=== PATIENT | female | born 1945 | race Caucasian/White ===

== ENCOUNTER → 2018-09-11 | Outpatient (CLI) | payer MEDICARE, BC | LOC: MC.RAD 08-07 09:40 | DX: Z00.00 Encounter for general adult medical examination without abnormal findings (principal); Z12.31 Encounter for screening mammogram for malignant neoplasm of breast ==

== ENCOUNTER → 2019-10-08 | Outpatient (CLI) | payer MEDICARE, BC | LOC: MC.RAD 11:45 | DX: Z12.31 Encounter for screening mammogram for malignant neoplasm of breast (principal) ==

== ENCOUNTER 2020-09-24 08:00 | Day surgery (SDC) | payer MEDICARE, BC ==
[~2020-09-24] VITALS: Ht 167.6 cm; Wt 69.4 kg
[2020-09-24] MEDS ORDERED: LOPRESSOR 225 MG/TAB PO (08:25)
[2020-09-24] MEDS ORDERED: CENTRUM1 TA1 (08:43)
[2020-09-24] MEDS ORDERED: THE MEDICINE S200 M2 PO (08:45)
[2020-09-24] MEDS ORDERED: NATURAL E400 IU PO (08:47)
[2020-09-24] MEDS ORDERED: PEPCID 20MG TAB20 MG PO (08:47)
[2020-09-24] MEDS ORDERED: CALCIUM 600 PLU1 TAB PO (08:48)
[2020-09-24 08:49] VITALS: BP 144/68; PULSE 82; TEMP 98.3
[2020-09-24 09:40] VITALS: BP 128/66; PULSE 68
--- NOTE | 2020-09-24 09:40 | NUR ---
Pt returns from endo procedure via cart. Pt ambulates from cart to recliner with RN assist. Monitors on and alarms set. Call light within reach. Report received from MAHAMED Aguilar. Pt alert and responding appropriately. Pt's in room. Pt requests coffee only. No complaints of pain or nausea.
[2020-09-24 09:54] VITALS: BP 140/77; PULSE 67
[2020-09-24 10:00] VITALS: BP 136/91; PULSE 67
--- NOTE | 2020-09-24 10:00 | NUR ---
Pt taking food and drink well. No complaints of pain or nausea.
[2020-09-24 10:15] VITALS: BP 142/77; PULSE 64
--- NOTE | 2020-09-24 10:30 | NUR ---
Discharge instructions given to pt and . All questions answered to their satisfaction. Handed to them are a thank you card, discharge instructions, diagnosis information, and a procedural photo sheet.
--- NOTE | 2020-09-24 10:35 | NUR ---
Pt transferred out of hospital via wheelchair and this RN to private vehicle driven by .
== END 2020-09-24 10:35 | disposition home or self-care (01) ==
LOC: SDCO 08:00 → EDSTATUS 09:45 → SDCO 09:45
DX: Z12.11 Encounter for screening for malignant neoplasm of colon (principal); D12.3 Benign neoplasm of transverse colon; D12.5 Benign neoplasm of sigmoid colon; Z86.010 Personal history of colon polyps; K57.30 Diverticulosis of large intestine without perforation or abscess without bleeding; Z88.5 Allergy status to narcotic agent; E11.9 Type 2 diabetes mellitus without complications
CPT/HCPCS: J2704; J7030

== ENCOUNTER → 2020-10-13 | Outpatient (CLI) | payer MEDICARE, BC ==
[~2020-10-13] MED LIST: CALCIUM 600 PLU1 TAB PO; CENTRUM1 TA1; LOPRESSOR 225 MG/TAB PO; NATURAL E400 IU PO; PEPCID 20MG TAB20 MG PO; THE MEDICINE S200 M2 PO
== END ==
LOC: MC.RAD 11:15
DX: Z12.31 Encounter for screening mammogram for malignant neoplasm of breast (principal)

== ENCOUNTER 2021-06-11 02:25 | Emergency (ER) | payer MEDICARE, BC ==
[~2021-06-11] VITALS: Ht 167.6 cm; Wt 70.5 kg
[2021-06-11 02:35] VITALS: TEMP 98.3
[2021-06-11 03:10] LABS: BASO # 0.1 (0.0-0.2); BASO % 0.7 % (0.0-2.0); EOS # 0.3 (0.0-0.7); EOS % 4.1 % (0-4.0); GRAN % 58.7 % (42.2-75.2); HEMATOCRIT 43.8 % (37.0-47.0); HEMOGLOBIN 14.4 g/dl (12.5-16.0); LYMPH # 1.8 (1.2-3.4); LYMPH % 26.4 % (20.0-51.0); MEAN CELL VOLUME 91 fl (80.0-100.0); MEAN CORPUSCULAR HEMOGLOBIN 30 pg (27.0-31.0); MEAN CORPUSCULAR HGB CONC 33 g/dl (33.0-37.0); MEAN PLATELET VOLUME 11.5 fl (7.4-10.4); MONO # 0.7 (0.1-0.6); MONO % 9.7 % (1.7-9.3); PLATELET COUNT 174 K/mm3 (130-400); RED BLOOD COUNT 4.83 M/mm3 (4.10-5.30); REDCELL DISTRIBUTION WIDTH-CV 12.2 % (11.5-14.5)
[2021-06-11 03:16] LABS: ALANINE AMINOTRANSFERASE 32 U/L (4-34); ALBUMIN 4.2 gm/dL (3.5-5.0); ALKALINE PHOSPHATASE 71 U/L (50-136); ANION GAP 10 mmol/L (7-16); AST,SGOT 30 U/L (15-37); BILIRUBIN,TOTAL 0.5 mg/dL (0.0-1.0); BLOOD UREA NITROGEN 17 mg/dL (7-17); CALCIUM 9.6 mg/dL (8.4-10.2); CARBON DIOXIDE 26 mmol/L (22-30); CHLORIDE 105 mmol/L (98-107); CREATININE, serum 0.67 (0.52-1.25); GLUCOSE 207 mg/dL (74-106); POTASSIUM 3.8 mmol/L (3.4-5.0); SODIUM 141 mmol/L (137-145); TOTAL PROTEIN 7.4 gm/dL (6.4-8.2)
[2021-06-11 03:32] LABS: TROPONIN-I < 0.012 ng/mL (0.000-0.035)
[2021-06-11 05:14] LABS: PROTHROMBIN TIME 10.6 SECONDS (9.7-12.8)
[2021-06-11 05:17] LABS: PARTIAL THROMBOPLASTIN TIME 28.2 SECONDS (26.0-37.0)
[2021-06-11] MEDS ORDERED: PREDNISONE20 MG PO (05:20)
[2021-06-11] MEDS ORDERED: PEPCID 20MG TAB20 MG PO (05:20)
[2021-06-11 05:50] VITALS: BP 145/74; PULSE 75
== END 2021-06-11 05:55 | disposition home or self-care (01) ==
LOC: COL.ER 02:25
PROVIDERS: Emergency Medicine
DX: R07.89 Other chest pain (principal); R21 Rash and other nonspecific skin eruption; I10 Essential (primary) hypertension; E11.9 Type 2 diabetes mellitus without complications; Z79.899 Other long term (current) drug therapy
CPT/HCPCS: J1100; J7030

== ENCOUNTER → 2021-12-04 | Outpatient (CLI) | payer MEDICARE, BC ==
[~2021-12-04] MED LIST changes: +PREDNISONE20 MG PO
== END ==
LOC: MC.RAD 10-16 11:00
DX: Z12.31 Encounter for screening mammogram for malignant neoplasm of breast (principal)

== ENCOUNTER → 2023-01-06 | Outpatient (CLI) | payer MEDICARE, BC | LOC: MC.RAD 10:31 | DX: Z12.31 Encounter for screening mammogram for malignant neoplasm of breast (principal) ==